=== PATIENT | female | born 1995 | race Two or more races ===

== ENCOUNTER 2017-04-17 18:15 | Observation (INO) | payer MEDICAID | END 2017-04-17 20:27 | disposition home or self-care (01) | DRG 566 | LOC: LDRP 18:15 | PROVIDERS: ADMIT Obstetrics & Gynecology; ATTEND Obstetrics & Gynecology | DX: O42.92 Full-term premature rupture of membranes, unspecified as to length of time between rupture and onset of labor (principal); Z87.891 Personal history of nicotine dependence; Z3A.38 38 weeks gestation of pregnancy | CPT/HCPCS: 59025; 76818; 81002; G0378 ==

== ENCOUNTER 2017-04-18 07:20 | Observation (INO) | payer MEDICAID | END 2017-04-18 08:45 | disposition home or self-care (01) | DRG 566 | LOC: LDRP 07:20 | PROVIDERS: ADMIT Obstetrics & Gynecology; ATTEND Obstetrics & Gynecology | DX: O36.8130 Decreased fetal movements, third trimester, not applicable or unspecified (principal); Z3A.39 39 weeks gestation of pregnancy | CPT/HCPCS: 59025; 76815; 81002; G0378 ==

== ENCOUNTER 2017-04-22 18:32 | Observation (INO) | payer MEDICAID ==
[2017-04-23] MEDS ORDERED: PREN-96 PO (17:17)
== END 2017-04-22 19:33 | disposition home or self-care (01) | DRG 566 ==
LOC: LDRP 18:32
PROVIDERS: ADMIT Specialist; ATTEND Specialist
DX: O26.813 Pregnancy related exhaustion and fatigue, third trimester (principal); O99.513 Diseases of the respiratory system complicating pregnancy, third trimester; R06.00 Dyspnea, unspecified; O26.893 Other specified pregnancy related conditions, third trimester; M54.9 Dorsalgia, unspecified; R53.1 Weakness; R10.9 Unspecified abdominal pain; R11.0 Nausea; R68.83 Chills (without fever); R19.7 Diarrhea, unspecified; Z3A.39 39 weeks gestation of pregnancy
CPT/HCPCS: 59025; 81002; G0378

== ENCOUNTER 2017-04-23 15:40 | Inpatient (IN) | payer MEDICAID ==
[~2017-04-23] VITALS: Ht 157.5 cm; Wt 75.7 kg
[2017-04-23] MEDS ORDERED: LACT. RINGERS/OXYTOCIN 20UNITS 1,000 ML IV SCH (15:58)
[2017-04-23] MEDS ORDERED: METHYLERGONOVINE MALEATE 0.2 MG/ML AMP IM PRN (16:00)
[2017-04-23] MEDS ORDERED: WITCH HAZEL-GLYCERIN PAD TOP PRN (16:00)
[2017-04-23] MEDS ORDERED: PHISODERM TOP SOLN 240ML BTL TOP PRN (16:00)
[2017-04-23] MEDS ORDERED: NALBUPHINE HCL 10 MG/1ml INJECTION IV PRN (16:00)
[2017-04-23] MEDS ORDERED: DERMOPLAST 60ML BOTTLE TOP PRN (16:00)
[2017-04-23] MEDS ORDERED: LIDOCAINE 1% HCL (LOCAL ANESTH.) INJ 20ML MDV IJ ONE (16:00)
[2017-04-23 17:01] LABS: Basophils # (auto) 0 uL; Basophils % (auto) 0.1 % (0.0-2.0); Eosinophils # (auto) 0.1 uL; Eosinophils % (auto) 0.5 % (0.0-7.0); Hematocrit 35.5 % (36.0-46.0); Hemoglobin 12.1 g/dL (12.2-16.2); Lymphocytes # (auto) 1.3 uL; Lymphocytes % (auto) 10.8 % (10.0-50.0); Mean Corpuscular Hemoglobin 31.2 pg (28.0-32.0); Mean Corpuscular Hgb Conc. 34.1 g/dL (32.0-36.0); Mean Corpuscular Volume 91.7 fL (80.0-100.0); Monocytes # (auto) 0.9 uL; Monocytes % (auto) 7.4 % (0.0-12.0); Neutrophils # (auto) 9.5 uL; Neutrophils % (auto) 81.2 % (37.0-80.0); Platelet Count (auto) 218 10^3/uL (140-450); Red Cell Distribution Width 13.3 % (11.6-16.0); White Blood Cell 11.7 10^3/uL (4.4-10.8)
[2017-04-23 17:06] LABS: Urine Bilirubin Negative (Negative); Urine Blood TRACE /uL (Negative); Urine Color Yellow (Yellow); Urine Glucose Normal (Normal); Urine Ketone Negative (Negative); Urine Nitrite Negative (Negative); Urine RBC 5 /hpf (0 - 4); Urine Squamous Epithelial Cell FEW /hpf (<5); Urine Urobilinogen Normal (Negative); Urine pH 6.5 (5.0-8.0)
[2017-04-23] MEDS ORDERED: LIDOCAINE 2%HCL (LOCAL ANESTH.) INJ 20ML MDV ONE (17:16)
[2017-04-23] MEDS ORDERED: PREN-96 PO (17:17)
[2017-04-23 17:19] LABS: Albumin 2.5 g/dL (3.4-5.0); BUN/Creatinine Ratio 15.6; Calcium 8.3 mg/dL (8.5-10.1)
[2017-04-23 17:22] LABS: Bilirubin, Total 0.2 mg/dL (0.2-1.0); Total Protein 6.3 g/dL (6.4-8.2)
[2017-04-23 17:27] LABS: Partial Thromboplastin Time 24.6 sec (22.64-33.71); Prothrombin Time 9.5 sec (9.37-12.3)
[2017-04-23 17:40] LABS: INR 0.87 (0.9-1.15)
[2017-04-23] MEDS ORDERED: LIDOCAINE HCL 2 %PF INJ 10ML AMP IJ ONE (19:00)
[2017-04-23] MEDS ORDERED: fentaNYL CITRATE 100 MCG/2 ML VL IV ONE ×2 (19:00→20:15)
[2017-04-23] MEDS ORDERED: ePHEDrine SULFATE 50 MG/ML AMP IV ONE ×2 (19:00→20:15)
[2017-04-23] MEDS ORDERED: fentaNYL W ROPIVACAINE 150 ML EPI SCH ×2 (19:00→20:15)
[2017-04-23] MEDS ORDERED: NALOXONE HCL 0.4 MG/ML VIAL IV ONE ×2 (19:00→20:15)
[2017-04-23] MEDS ORDERED: SODIUM CHLORIDE 0.9% 500 ML IV PRN (20:14)
[2017-04-23] MEDS: LACTATED RINGER'S 1,000 ML IV SCH (23:58)
[2017-04-24] MEDS ORDERED: LACT. RINGERS/OXYTOCIN 20UNITS 500 ML IV ONE (01:31)
[2017-04-24] MEDS: IBUPROFEN 600 MG TAB PO PRN ×3 (03:48→22:19)
[2017-04-24 04:30] VITALS: BP 106/67
[2017-04-24 07:55] VITALS: BP 107/63
[2017-04-24] MEDS: LACTATED RINGER'S 1,000 ML IV SCH ×2 (07:58→15:58)
[2017-04-24 11:50] VITALS: BP 104/70
[2017-04-24 15:40] VITALS: BP 116/66
[2017-04-24 19:15] VITALS: BP 113/65
[2017-04-24 23:30] VITALS: BP 117/75
[2017-04-25 03:40] VITALS: BP 111/64
[2017-04-25 08:00] VITALS: BP 109/61
[2017-04-25 12:10] VITALS: BP 111/73
[2017-04-25 16:00] VITALS: BP 113/73
[2017-04-25] MEDS: IBUPROFEN 600 MG TAB PO PRN (17:26)
[2017-04-25 19:00] VITALS: BP 111/73
== END 2017-04-25 22:34 | disposition home or self-care (01) | DRG 560 ==
LOC: LDRP 15:40 → OBSVTOIN 15:40
PROVIDERS: ADMIT Specialist; ATTEND Specialist
PROC: 3E0S3CZ (ICD-10-PCS; 2017-04-23)
PROC: 00HU33Z Insertion of Infusion Device into Spinal Canal, Percutaneous Approach (ICD-10-PCS; 2017-04-23)
PROC: 10E0XZZ Delivery of Products of Conception, External Approach (ICD-10-PCS; principal; 2017-04-24)
PROC: 0HQ9XZZ Repair Perineum Skin, External Approach (ICD-10-PCS; 2017-04-24)
DX: O42.92 Full-term premature rupture of membranes, unspecified as to length of time between rupture and onset of labor (principal); O70.0 First degree perineal laceration during delivery; Z37.0 Single live birth; Z3A.39 39 weeks gestation of pregnancy
CPT/HCPCS: 36415; 51702; 59025; 59409; 62282; 80053; 80307; 81001; 85025; 85610; 85730; 86850; 86900; 86901; 94762; 96361; 96366; J2590; J3010

== ENCOUNTER 2022-01-17 17:41 | Emergency (ER) | payer MEDICAID ==
[~2022-01-17] VITALS: Ht 162.6 cm; Wt 54.0 kg
[~2022-01-17 17:41] MED LIST: PREN-96 PO
[2022-01-17 19:18] VITALS: BP 118/76
== END 2022-01-17 19:22 | disposition home or self-care (01) ==
LOC: ER 17:41
DX: M25.561 Pain in right knee (principal); Z79.899 Other long term (current) drug therapy
CPT/HCPCS: 73562